=== PATIENT | male | born 1995 | race Caucasian/White ===

== ENCOUNTER 2020-12-26 09:34 | Emergency (ER) | payer OTHER ==
[2020-12-26 10:26] LABS: HEMOGLOBIN 16.6 gm/dl (14.0-17.5); RED BLOOD COUNT 5.08 M/UL (4.20-5.50); WHITE BLOOD COUNT 7.6 K/UL (4.5-11.0)
[2020-12-26 10:49] LABS: BUN/CREATININE RATIO 14 (0-10)
== END 2020-12-26 12:48 | disposition home or self-care (01) ==
LOC: ER1 09:34
PROVIDERS: Physician Assistant
DX: R10.31 Right lower quadrant pain (principal); R11.0 Nausea; F17.210 Nicotine dependence, cigarettes, uncomplicated
CPT/HCPCS: 80053; 81001; 85025; 99284; Q9967

== ENCOUNTER 2021-05-27 05:41 | Emergency (ER) | payer SELFPAY ==
[2021-05-27 06:27] LABS: HEMOGLOBIN 16.7 gm/dl (14.0-17.5); RED BLOOD COUNT 5.21 M/UL (4.20-5.50); WHITE BLOOD COUNT 9.8 K/UL (4.5-11.0)
[2021-05-27 06:46] LABS: BUN/CREATININE RATIO 15 (0-10)
== END 2021-05-27 08:30 | disposition home or self-care (01) ==
LOC: ER1 05:41
PROVIDERS: Physician Assistant
DX: R10.13 Epigastric pain (principal); R07.9 Chest pain, unspecified; M54.9 Dorsalgia, unspecified; K21.9 Gastro-esophageal reflux disease without esophagitis; F17.210 Nicotine dependence, cigarettes, uncomplicated
CPT/HCPCS: 71045; 80053; 82550; 82553; 83605; 83690; 84484; 85025; 93005; 96374; 96375; 99284; J1885; J2405